=== PATIENT | male | born 2000 | race Caucasian/White ===

== ENCOUNTER 2021-09-27 08:27 | Emergency (ER) | payer OTHER ==
[~2021-09-27] VITALS: Ht 195 cm; Wt 72.5 kg
[2021-09-27] MEDS ORDERED: AMOX500C2 PO (08:43)
--- NOTE | 2021-09-27 08:43 | ED EENT ---
History of Present Illness General Stated Complaint: FEVER,SORE THROAT,BODY ACHES,CHILLS Source: patient Exam Limitations: no limitations History of Present Illness Date Seen by Provider: Sep 27, 2021 Time Seen by Provider: 08:30 Initial Comments Patient to the ER by private conveyance with chief complaint of sore throat for 2 days. Difficulty swallowing because of the pain but keeping up with hydration. No nausea or vomiting. He is having fever and body aches. He has had ear problems in the past but no ear pain today. No surgeries or significant medical history Allergies and Home Medications Allergies Coded Allergies: No Known Drug Allergies (Unverified , 09/27/21) Patient Home Medication List Home Medication List Reviewed: Yes Amoxicillin (Amoxicillin) 500 Mg Capsule, 500 MG PO BID Prescribed by: JOSE ANTONIO DUNAWAY on 09/27/21 0843 Review of Systems Review of Systems Constitutional: chills, fever, malaise Eyes: Denies Blindness, Denies Blurred Vision Ears: Denies Dizziness, Denies Pain Nose: denies clots, denies congestion Mouth: denies clots, denies loose teeth Throat: denies pain, denies swelling Respiratory: No cough, No short of breath Cardiovascular: No chest pain, No palpitations Gastrointestinal: No abdominal pain, No nausea All Other Systems Reviewed Negative Unless Noted: Yes Past [id number]-[id number]-Bozhvy Hx Patient Social History Tobacco Use?: No Use of E-Cig and/or Vaping dev: No Substance use?: No Physical Exam Vital Signs Vital Signs - First Documented 09/27/21 08:43 Temp 36.7 Pulse 90 Resp 18 B/P (MAP) 119/74 (89) Pulse Ox 99 Height, Weight, BMI Height: '" Weight: lbs. oz. kg; BMI Method: General Appearance: WD/WN, no apparent distress Eyes: bilateral eye normal inspection, bilateral eye PERRL, bilateral eye EOMI Ears: bilateral ear auricle normal, bilateral ear canal normal, bilateral ear TM normal Nose: normal inspection; No active bleeding Mouth/Throat: other (Retropharyngeal injection/erythema with exudative swollen tonsils.) Neck: full range of motion, supple, normal inspection, tender lateral Cardiovascular: normal peripheral pulses, regular rate, rhythm Respiratory: no respiratory distress, no accessory muscle use Neurologic/Psychiatric: alert, normal mood/affect, oriented x 3 Progress/Results/Core Measures Results/Orders Lab Results Laboratory Tests Test 09/27/21 08:36 Range/Units Group A Streptococcus Screen NEGATIVE NEGATIVE My Orders Orders - JOSE ANTONIO DUNAWAY Rapid Strep A Screen (09/27/21 08:38) Vital Signs/I&O 09/27/21 09/27/21 08:43 08:52 Temp 36.7 Pulse 90 90 Resp 18 18 B/P (MAP) 119/74 (89) 119/74 Pulse Ox 99 99 Departure Impression Primary Impression: Acute streptococcal pharyngitis Disposition: HOME, SELF-CARE Condition: Stable Departure-Patient Inst. Decision time for Depature: 08:42 Patient Instructions: Strep Throat (DC) Add. Discharge Instructions: Amoxicillin 500 mg twice a day with food. Drink plenty of fluids. Salt water gargles and Chloraseptic sprays can be helpful to reduce the pain in your throat. Throat lozenges are also helpful. Tylenol 1000 mg every 8 hours as necessary for pain or fever. Ibuprofen 800 mg every 8 hours as necessary for pain or fever. Return to work when 24 hours fever free. Scripts Amoxicillin (Amoxicillin) 500 Mg Capsule 500 MG PO BID for 10 Days, #20 CAP 0 Refills Prov: JOSE ANTONIO DUNAWAY 09/27/21 Work/School Note: Work Release Form Date Seen in the Emergency Department: Sep 27, 2021 Return to Work: Oct 02, 2021 Restrictions: Return-No Fever (24hrs) Other Restrictions Listed Below: May return as soon as 24 hours fever free. JOSE ANTONIO DUNAWAY Sep 27, 2021 08:43
[2021-09-27 08:52] VITALS: BP 119/74
== END 2021-09-27 08:52 | disposition home or self-care (01) ==
LOC: ER 08:30
DX: J02.0 Streptococcal pharyngitis (principal)
CPT/HCPCS: 87430; 99283